=== PATIENT | female | born 1965 | race African-American/Black ===

== ENCOUNTER 2021-01-01 08:42 | Emergency (ER) | payer MEDICAID, MEDICARE, OTHER ==
[~2021-01-01] VITALS: Ht 160 cm; Wt 80.0 kg
[2021-01-01] MEDS ORDERED: VISCOUS LIDOCAINE 2% 15 ML UDC PO ONE (09:30)
[2021-01-01] MEDS ORDERED: ONDANSETRON 4MG ODT PO ONE (09:30)
[2021-01-01] MEDS ORDERED: MAGNESIUM/ALUMINUM HYDROXIDE/SIMETHICONE 30ML UDC PO ONE (09:30)
[2021-01-01 09:48] LABS: BASOPHILS % 0.4 % (0.0-2.0); EOSINOPHILS % 0.8 % (0.0-5.0); HEMATOCRIT. 38.1 % (36.0-48.0); LYMPHOCYTES % 31.1 % (20.0-50.0); MEAN CORPUSCULAR HEMOGLOBIN 32.4 pg (28.0-32.0); MEAN CORPUSCULAR VOLUME 94.7 fL (81.0-99.0); MEAN PLATELET VOLUME 8.5 fl (7.4-10.4); MONOCYTES % 11.4 % (2.0-8.0); NEUTROPHILS % 56.3 % (40.0-76.0); PLATELET 165 x1000/uL (130-400); RED BLOOD CELL COUNT 4.03 mill/uL (4.2-5.4); RED CELL DISTRIBUTION WIDTH 14.8 % (11.6-14.6)
[2021-01-01 09:55] LABS: CHLORIDE 108 mEq/L (98-107); CLARITY URINE CLEAR (CLEAR); COLOR URINE YELLOW (YELLOW); KETONES URINE NEGATIVE (NEGATIVE); LEUKOCYTE ESTERASE URINE 1+ (NEGATIVE); NITRITE URINE NEGATIVE (NEGATIVE); OCCULT BLOOD URINE NEGATIVE (NEGATIVE); PH URINE 6.5 (4.5-8.0); PROTEIN URINE NEGATIVE (NEGATIVE); SPECIFIC GRAVITY URINE 1.023 (1.005-1.030)
[2021-01-01] MEDS ORDERED: PANT20TA17 MT ×2 (14:03→14:21)
[2021-01-01] MEDS ORDERED: HYDROCODONE/ACETAMINOPHEN 5/325MG TABLET PO ONE (14:15)
[2021-01-01 14:24] VITALS: BP 151/80
[2021-01-01] MEDS ORDERED: IOHEXOL-300 100 ML BOTTLE ONE (14:36)
== END 2021-01-01 14:28 | disposition home or self-care (01) ==
LOC: ER 09:04
DX: R10.13 Epigastric pain (principal); F10.21 Alcohol dependence, in remission
CPT/HCPCS: 36415; 74177; 80053; 81003; 83690; 85025; 87086; 99285; Q0162; Q9967

== ENCOUNTER 2021-06-10 01:11 | Emergency (ER) | payer MEDICAID ==
[~2021-06-10] VITALS: Ht 160 cm; Wt 77.0 kg
[~2021-06-10 01:11] MED LIST: PANT20TA17 MT
[2021-06-10] MEDS ORDERED: ONDANSETRON 4MG ODT PO STA (02:29)
[2021-06-10] MEDS ORDERED: MAGNESIUM/ALUMINUM HYDROXIDE/SIMETHICONE 30ML UDC PO STA (02:29)
[2021-06-10] MEDS ORDERED: FAMOTIDINE 20MG TABLET PO ONE (02:30)
[2021-06-10 02:58] LABS: BASOPHILS % 0.6 % (0.0-2.0); EOSINOPHILS % 1.4 % (0.0-5.0); HEMATOCRIT. 39.4 % (36.0-48.0); HEMOGLOBIN. 13.3 g/dL (12.0-16.0); LYMPHOCYTES % 27.9 % (20.0-50.0); MEAN CORPUSCULAR HEMOGLOBIN 32.8 pg (28.0-32.0); MEAN CORPUSCULAR VOLUME 97.2 fL (81.0-99.0); MEAN PLATELET VOLUME 8.3 fl (7.4-10.4); MONOCYTES % 10.3 % (2.0-8.0); NEUTROPHILS % 59.8 % (40.0-76.0); PLATELET 201 x1000/uL (130-400); RED BLOOD CELL COUNT 4.05 mill/uL (4.2-5.4); RED CELL DISTRIBUTION WIDTH 14.2 % (11.6-14.6)
[2021-06-10 03:00] LABS: CHLORIDE 109 mEq/L (98-107)
[2021-06-10 03:16] LABS: CLARITY URINE CLOUDY (CLEAR); COLOR URINE YELLOW (YELLOW); KETONES URINE TRACE (NEGATIVE); LEUKOCYTE ESTERASE URINE NEGATIVE (NEGATIVE); NITRITE URINE NEGATIVE (NEGATIVE); OCCULT BLOOD URINE NEGATIVE (NEGATIVE); PH URINE 5.5 (4.5-8.0); PROTEIN URINE NEGATIVE (NEGATIVE); SPECIFIC GRAVITY URINE 1.028 (1.005-1.030)
[2021-06-10] MEDS ORDERED: IBUP-2028 MT (05:22)
[2021-06-10] MEDS ORDERED: HYDR-4001 MT (05:22)
[2021-06-10] MEDS ORDERED: PANT40SU PO (05:22)
[2021-06-10 06:00] VITALS: BP 141/95
[2021-06-10] MEDS ORDERED: HYDROCODONE/ACETAMINOPHEN 5/325MG TABLET PO ONE (06:00)
== END 2021-06-10 06:10 | disposition home or self-care (01) ==
LOC: ER 01:11
DX: K80.50 Calculus of bile duct without cholangitis or cholecystitis without obstruction (principal); K80.20 Calculus of gallbladder without cholecystitis without obstruction; Z76.0 Encounter for issue of repeat prescription; K21.9 Gastro-esophageal reflux disease without esophagitis; Z98.890 Other specified postprocedural states; Z79.899 Other long term (current) drug therapy
CPT/HCPCS: 36415; 71045; 76700; 80053; 81003; 83690; 85025; 93005; 99285; Q0162

== ENCOUNTER 2022-03-27 03:00 | Emergency (ER) | payer MEDICAID, MEDICARE ==
[~2022-03-27] VITALS: Ht 160 cm; Wt 76.0 kg
[~2022-03-27 03:00] MED LIST changes: +HYDR-4001 MT; +IBUP-2028 MT; +PANT40SU PO
[2022-03-27 03:08] VITALS: BP 147/99
[2022-03-27] MEDS ORDERED: TETRACAINE 0.5% OPHTH DROPS 4ML BOTHEYE ONE (04:30)
[2022-03-27] MEDS ORDERED: FLUORESCEIN SODIUM 1MG/STRIP BOTHEYE ONE (04:30)
[2022-03-27] MEDS ORDERED: IBUP-2028 MT (05:51)
[2022-03-27] MEDS ORDERED: KETO5DRO80 EACHEYE (05:51)
[2022-03-27] MEDS ORDERED: KETO5DRO37 EACHEYE (11:47)
== END 2022-03-27 06:04 | disposition home or self-care (01) ==
LOC: ER 03:00
DX: H10.023 Other mucopurulent conjunctivitis, bilateral (principal); K21.9 Gastro-esophageal reflux disease without esophagitis; Z98.890 Other specified postprocedural states
CPT/HCPCS: 99283

== ENCOUNTER 2022-05-03 02:59 | Emergency (ER) | payer MEDICAID ==
[~2022-05-03] VITALS: Ht 160 cm; Wt 76.5 kg
[~2022-05-03 02:59] MED LIST changes: +KETO5DRO37 EACHEYE; +KETO5DRO80 EACHEYE
[2022-05-03] MEDS ORDERED: IBUPROFEN 600MG TABLET PO STA (04:14)
[2022-05-03] MEDS ORDERED: TETRACAINE 0.5% OPHTH DROPS 4ML RIGHTEYE ONE (04:15)
[2022-05-03] MEDS ORDERED: FLUORESCEIN SODIUM 1MG/STRIP RIGHTEYE ONE (04:15)
[2022-05-03] MEDS ORDERED: BALANCED SALT IRRIG SOLN 15ML IR ONE (04:15)
[2022-05-03 04:36] VITALS: BP 151/91
[2022-05-03] MEDS ORDERED: ERYTHROMYCIN BASE 0.5% OPHTH OINT 3.5GM RIGHTEYE STA (05:39)
[2022-05-03] MEDS ORDERED: ERYT1OIN6 RIGHTEYE (06:02)
[2022-05-03] MEDS ORDERED: IBUP-2029 PO (06:02)
[2022-05-03] MEDS ORDERED: NAPR-681 PO (06:20)
[2022-05-03] MEDS ORDERED: TRAM50TA3 MT (06:20)
== END 2022-05-03 06:46 | disposition home or self-care (01) ==
LOC: ER 02:59
DX: S00.201A Unspecified superficial injury of right eyelid and periocular area, initial encounter (principal); X58.XXXA Exposure to other specified factors, initial encounter; Y93.89 Activity, other specified; Y92.89 Other specified places as the place of occurrence of the external cause; Y99.8 Other external cause status
CPT/HCPCS: 99283

== ENCOUNTER 2022-11-07 03:22 | Emergency (ER) | payer MEDICAID ==
[~2022-11-07] VITALS: Ht 160 cm; Wt 77.2 kg
[~2022-11-07 03:22] MED LIST changes: +ERYT1OIN6 RIGHTEYE; +NAPR-681 PO; +TRAM50TA3 MT
[2022-11-07 03:32] VITALS: BP 148/81
[2022-11-07] MEDS ORDERED: ACETAMINOPHEN 325MG TABLET PO ONE (05:30)
== END 2022-11-07 07:17 | disposition home or self-care (01) ==
LOC: ER 03:22
DX: R11.2 Nausea with vomiting, unspecified (principal); R51.9 Headache, unspecified
CPT/HCPCS: 71045; 99284

== ENCOUNTER 2023-03-16 03:38 | Emergency (ER) | payer MEDICAID ==
[~2023-03-16] VITALS: Ht 160 cm; Wt 74.2 kg
[~2023-03-16 03:38] MED LIST changes: -KETO5DRO37 EACHEYE; +KETO5DRO38 EACHEYE
[2023-03-16 03:47] VITALS: O2SAT 100
[2023-03-16] MEDS ORDERED: ACETAMINOPHEN 325MG TABLET PO ONE (06:45)
[2023-03-16] MEDS ORDERED: ONDANSETRON HCL 4MG/2ML INJ IV ONE (07:00)
[2023-03-16] MEDS ORDERED: ONDANSETRON HCL 4MG TABLET PO ONE (07:00)
[2023-03-16 07:05] LABS: BASOPHILS % 0.3 % (0.0-2.0); HEMATOCRIT. 38.1 % (36.0-48.0); LYMPHOCYTES % 8.1 % (20.0-50.0); MEAN CORPUSCULAR HEMOGLOBIN 32.4 pg (28.0-32.0); MEAN CORPUSCULAR VOLUME 95.2 fL (81.0-99.0); MEAN PLATELET VOLUME 8.8 fl (7.4-10.4); MONOCYTES % 10.8 % (2.0-8.0); NEUTROPHILS % 79.8 % (40.0-76.0); PLATELET 162 x1000/uL (130-400); RED CELL DISTRIBUTION WIDTH 13.9 % (11.6-14.6)
[2023-03-16 08:02] LABS: ALANINE AMINOTRANSFERASE 18 IU/L (13-61); ALBUMIN 3.5 g/dL (3.4-5.0); ASPARTATE AMINOTRANSFERASE 27 IU/L (15-37); BILIRUBIN TOTAL 0.6 mg/dL (0.1-1.0); CALCIUM 8.4 mg/dL (8.5-10.1); CARBON DIOXIDE 25 mEq/L (21-32); CREATININE 0.4 mg/dL (0.6-1.3); GLUCOSE 98 mg/dL (70-105); INDEX HEMOLYSI 1 (1-3); INDEX ICTERIC 1 (1-4); INDEX LIPEMIC 1 (1-3); NT PRO B-TYPE NATRIURETIC PEP 49 pg/mL (5-125); PROTEIN TOTAL 6.6 g/dL (6.0-8.3); TROPONIN I HIGH SENSITIVITY 4 ng/L (<54); UREA NITROGEN BLOOD 8 mg/dL (7-21)
[2023-03-16 09:14] LABS: CHLORIDE 107 mEq/L (98-107); SODIUM 134 mEq/L (136-145)
[2023-03-16] MEDS ORDERED: KETOROLAC 30MG/ML VIAL IV ONE (09:30)
[2023-03-16 09:32] LABS: CLARITY URINE CLOUDY (CLEAR); COLOR URINE YELLOW (YELLOW); GLUCOSE URINE NEGATIVE (NEGATIVE); KETONES URINE NEGATIVE (NEGATIVE); LEUKOCYTE ESTERASE URINE 1+ (NEGATIVE); NITRITE URINE NEGATIVE (NEGATIVE); OCCULT BLOOD URINE NEGATIVE (NEGATIVE); PH URINE 6.5 (4.5-8.0); PROTEIN URINE NEGATIVE (NEGATIVE)
[2023-03-16 09:54] LABS: BACTERIA URINE 2+; RBC URINE 0-2 /hpf (0-2); SQUAMOUS EPITHELIAL CELL URINE 1+ /lpf (RARE/1+); YEAST URINE NONE SEEN
[2023-03-16] MEDS ORDERED: ONDA4TAB50 MT (12:43)
[2023-03-16] MEDS ORDERED: NITR-87 MT (12:43)
[2023-03-16] MEDS ORDERED: NAPR-681 PO (12:43)
[2023-03-16] MEDS ORDERED: TRAM50TA3 MT (12:43)
[2023-03-16 13:07] VITALS: BP 127/81; PULSE 93; RESP 18; TEMP 97
== END 2023-03-16 13:17 | disposition home or self-care (01) ==
LOC: ER 05:12
DX: R52 Pain, unspecified (principal); I49.9 Cardiac arrhythmia, unspecified
CPT/HCPCS: 80053; 81003; 83880; 83605; 85025; 84484; 36415; 71045; 76705; 93005; 96374; 96375; 99285; J1885; J2405; Z7610 ×2

== ENCOUNTER 2023-03-30 12:17 | Inpatient (IN) | payer OTHER, MEDICAID ==
[~2023-03-30] VITALS: Ht 160 cm; Wt 72.1 kg
[~2023-03-30 12:17] MED LIST changes: +NITR-87 MT; +ONDA4TAB50 MT
[2023-03-30] MEDS ORDERED: ACETAMINOPHEN 325MG TABLET PO ONE (14:30)
[2023-03-30 14:49] LABS: BASOPHILS % 0.3 % (0.0-2.0); EOSINOPHILS % 1.9 % (0.0-5.0); HEMATOCRIT. 40.3 % (36.0-48.0); HEMOGLOBIN. 13.5 g/dL (12.0-16.0); LYMPHOCYTES % 21.3 % (20.0-50.0); MEAN CORPUSCULAR HEMOGLOBIN 31.9 pg (28.0-32.0); MEAN CORPUSCULAR HGB CONC 33.4 g/dL (31.0-37.0); MEAN CORPUSCULAR VOLUME 95.5 fL (81.0-99.0); MEAN PLATELET VOLUME 8.2 fl (7.4-10.4); MONOCYTES % 7.7 % (2.0-8.0); NEUTROPHILS % 68.8 % (40.0-76.0); PLATELET 261 x1000/uL (130-400); RED BLOOD CELL COUNT 4.22 mill/uL (4.2-5.4); RED CELL DISTRIBUTION WIDTH 14.4 % (11.6-14.6); WHITE BLOOD COUNT 5.3 x1000/uL (4.5-11.0)
[2023-03-30 15:26] LABS: CHLORIDE 111 mEq/L (98-107); INDEX HEMOLYSI 1 (1-3); INDEX ICTERIC 1 (1-4); INDEX LIPEMIC 1 (1-3); POTASSIUM 4.5 mEq/L (3.5-5.1); SODIUM 140 mEq/L (136-145)
[2023-03-30 15:28] LABS: PARTIAL THROMBOPLASTIN TIME 26.2 sec (23.4-31.0); PROTHROMBIN TIME 10.3 sec (9.6-11.0)
[2023-03-30] MEDS ORDERED: MORPHINE SULFATE 4 MG/ML CPJ (NOT FOR IM USE) IV ONE (15:30)
[2023-03-30] MEDS ORDERED: ONDANSETRON HCL 4MG/2ML INJ IV ONE (15:30)
[2023-03-30 15:36] LABS: ALANINE AMINOTRANSFERASE 54 IU/L (13-61); ALBUMIN 3.5 g/dL (3.4-5.0); ASPARTATE AMINOTRANSFERASE 59 IU/L (15-37); BILIRUBIN TOTAL 0.2 mg/dL (0.1-1.0); CALCIUM 8.6 mg/dL (8.5-10.1); CARBON DIOXIDE 26 mEq/L (21-32); CREATININE 0.6 mg/dL (0.6-1.3); GLUCOSE 92 mg/dL (70-105); NT PRO B-TYPE NATRIURETIC PEP 59 pg/mL (5-125); PROTEIN TOTAL 6.7 g/dL (6.0-8.3); TROPONIN I HIGH SENSITIVITY 5 ng/L (<54); UREA NITROGEN BLOOD 13 mg/dL (7-21)
[2023-03-30] MEDS ORDERED: HYDROMORPHONE HCL/PF 2MG/ML CPJ IV ONE (17:45)
[2023-03-30 17:46] LABS: PROTHROMBIN TIME 10.6 sec (9.6-11.0)
[2023-03-30] MEDS ORDERED: CLONIDINE 0.1MG TABLET PO PRN (19:30)
[2023-03-30] MEDS ORDERED: IPRATROPIUM/ALBUTEROL 0.5-3(2.5)MG/3ML NEB HHN PRN (19:30)
[2023-03-30] MEDS ORDERED: LORAZEPAM 0.5MG TABLET PO PRN (19:30)
[2023-03-30] MEDS ORDERED: MAGNESIUM/ALUMINUM HYDROXIDE/SIMETHICONE 30ML UDC PO PRN (19:30)
[2023-03-30] MEDS ORDERED: ACETAMINOPHEN 325MG TABLET PO PRN ×2 (19:30)
[2023-03-30] MEDS ORDERED: MORPHINE SULFATE 2 MG/ML CPJ (NOT FOR IM USE) IV PRN (21:15)
[2023-03-30] MEDS ORDERED: DEXTROSE 50% WATER 50ML SYRINGE IV PRN (21:30)
[2023-03-30] MEDS ORDERED: NALOXONE HCL 0.4 MG/ML 1ML VIAL IV PRN (21:30)
[2023-03-30 21:35] VITALS: BP 117/79; PULSE 72; RESP 18; TEMP 98.1
[2023-03-30] MEDS ORDERED: GADOTERATE MEGLUMINE 5 MMOL/10 ML VIAL IV ONE (22:19)
[2023-03-30] MEDS: BLOOD SUGAR DIAGNOSTIC STRIP TEST SCH (23:10)
[2023-03-30] MEDS: INSULIN LISPRO 100 UNITS/ML SUBCUT SCH (23:10)
[2023-03-30 23:22] LABS: INDEX HEMOLYSI 1 (1-3)
[2023-03-30 23:24] LABS: PHOSPHORUS 3.9 mg/dL (2.5-4.9)
[2023-03-30 23:38] LABS: CREATINE KINASE 35 IU/L (26-192); CREATINE KINASE MB FRACTION < 1.0 ng/mL (0.5-3.6); TROPONIN I HIGH SENSITIVITY 6 ng/L (<54)
[2023-03-31] VITALS (18 sets, daily range): BP systolic 89–147; BP diastolic 58–93; PULSE 48–77; RESP 14–18; TEMP 96.9–98; O2SAT 99
[2023-03-31 04:34] LABS: BASOPHILS % 0.4 % (0.0-2.0); HEMATOCRIT. 36.8 % (36.0-48.0); HEMOGLOBIN. 12.3 g/dL (12.0-16.0); MEAN CORPUSCULAR HEMOGLOBIN 31.6 pg (28.0-32.0); MEAN CORPUSCULAR HGB CONC 33.3 g/dL (31.0-37.0); MEAN CORPUSCULAR VOLUME 94.8 fL (81.0-99.0); MEAN PLATELET VOLUME 8.1 fl (7.4-10.4); NEUTROPHILS % 53.6 % (40.0-76.0); PLATELET 212 x1000/uL (130-400); RED BLOOD CELL COUNT 3.88 mill/uL (4.2-5.4); WHITE BLOOD COUNT 4.4 x1000/uL (4.5-11.0)
[2023-03-31 05:15] LABS: CHLORIDE 109 mEq/L (98-107); INDEX HEMOLYSI 1 (1-3); INDEX ICTERIC 1 (1-4); INDEX LIPEMIC 1 (1-3); POTASSIUM 4.9 mEq/L (3.5-5.1); SODIUM 137 mEq/L (136-145)
[2023-03-31 05:29] LABS: ALANINE AMINOTRANSFERASE 47 IU/L (13-61); ASPARTATE AMINOTRANSFERASE 44 IU/L (15-37); BILIRUBIN TOTAL 0.3 mg/dL (0.1-1.0); CALCIUM 8.8 mg/dL (8.5-10.1); CARBON DIOXIDE 29 mEq/L (21-32); CHOLESTEROL 171 mg/dL (<200); CREATINE KINASE 32 IU/L (26-192); CREATINE KINASE MB FRACTION < 1.0 ng/mL (0.5-3.6); CREATININE 0.5 mg/dL (0.6-1.3); GLUCOSE 91 mg/dL (70-105); HDL CHOLESTEROL 46 mg/dL (40-59); LDL CHOLESTEROL 112 mg/dL (5-100); PROTEIN TOTAL 5.8 g/dL (6.0-8.3); T4 FREE 1.06 ng/dL (0.76-1.46); TRIGLYCERIDE 93 mg/dL (0-150); TROPONIN I HIGH SENSITIVITY 5 ng/L (<54); UREA NITROGEN BLOOD 12 mg/dL (7-21)
[2023-03-31] MEDS ORDERED: GENTAMICIN SULF 40MG/ML 2ML VIAL ONE (06:31)
[2023-03-31] MEDS ORDERED: LIDOCAINE HCL 1%/EPI 1:200,000 30 ML VIAL ONE (06:31)
[2023-03-31] MEDS ORDERED: THROMBIN (BOVINE) 5000 UNITS/VIAL TOP ONE ×2 (06:31→09:20)
[2023-03-31] MEDS ORDERED: ONDANSETRON HCL 4MG/2ML INJ ONE (07:03)
[2023-03-31] MEDS ORDERED: GLYCOPYRROLATE 0.2 MG/ML 2ML VIAL ONE ×2 (07:03)
[2023-03-31] MEDS ORDERED: DEXAMETHASONE 4MG/ML 1ML VIAL ONE (07:03)
[2023-03-31] MEDS ORDERED: NEOSTIGMINE METHYLSULFATE 1MG/ML 10 ML VIAL ONE (07:03)
[2023-03-31] MEDS ORDERED: SUCCINYLCHOLINE CHLORIDE 200MG/10ML IV ONE (07:03)
[2023-03-31] MEDS ORDERED: LIDOCAINE HCL 1% 10 MG/ML 10ML VIAL ONE (07:03)
[2023-03-31] MEDS ORDERED: CEFAZOLIN SODIUM 1000MG/VIAL ONE (07:03)
[2023-03-31] MEDS ORDERED: MIDAZOLAM HCL 2 MG/2 ML VIAL ONE (07:04)
[2023-03-31] MEDS ORDERED: FENTANYL CITRATE/PF 50MCG/ML 2ML VIAL ONE (07:04)
[2023-03-31] MEDS ORDERED: PROPOFOL 200MG/20ML VIAL IV ONE (07:04)
[2023-03-31] MEDS: INSULIN LISPRO 100 UNITS/ML SUBCUT SCH ×4 (07:08→21:00)
[2023-03-31] MEDS: BLOOD SUGAR DIAGNOSTIC STRIP TEST SCH ×4 (07:08→21:00)
[2023-03-31] MEDS ORDERED: ROCURONIUM BROMIDE 10MG/ML VIAL 5ML IV ONE (07:39)
[2023-03-31] MEDS ORDERED: MANNITOL 20% 500 ML IV ONE (07:52)
[2023-03-31] MEDS ORDERED: MEPERIDINE HCL/PF 25MG/ML CPJ IV PRN (08:00)
[2023-03-31] MEDS ORDERED: ONDANSETRON HCL 4MG/2ML INJ IV PRN (08:00)
[2023-03-31] MEDS ORDERED: HYDROMORPHONE HCL/PF 2MG/ML CPJ IV PRN (08:00)
[2023-03-31] MEDS ORDERED: LABETALOL 5MG/ML SYR 20 MG/4 ML SYRINGE IV PRN (08:00)
[2023-03-31] MEDS ORDERED: LEVETIRACETAM 500MG PREMIX 100 ML IV SCH (08:15)
[2023-03-31] MEDS ORDERED: LABETALOL HCL 5MG/ML VIAL 20ML IV ONE (09:46)
[2023-03-31] MEDS ORDERED: MORPHINE SULFATE 4 MG/ML CPJ (NOT FOR IM USE) IV PRN (10:00)
[2023-03-31] MEDS ORDERED: HYDROMORPHONE HCL/PF 2MG/ML CPJ ONE (10:04)
[2023-03-31] MEDS: DEXAMETHASONE 4MG/ML 1ML VIAL IV SCH ×3 (11:35→23:55)
[2023-03-31] MEDS: DEXT 5%/LACTATED RINGERS 1,000 ML IV SCH (11:35)
[2023-03-31] MEDS ORDERED: NICARDIPINE 100 MG in SODIUM CHLORIDE 0.9% 60 ML IV PRN (12:00)
[2023-03-31 13:18] LABS: BG BASE EXCESS -1.8 mmol/L (-2.0-2.0); BG CARBOXYHEMOGLOBIN 0.3 % (0.5-1.5); BG DEOXYHEMOGLOBIN 1.2 % (0.0-5.0); BG FRACTION INSPIRED OXYGEN 36; BG OXYGEN SATURATION 98.8 % (92.0-98.5); BG OXYHEMOGLOBIN 98.5 % (94.0-97.0); BG PCO2 44.5 mmHg (35.0-45.0); BG PH 7.349 (7.350-7.450); BG PO2 164.4 mmHg (75.0-100.0); BG SAMPLE SITE ALINE; BG TOTAL HEMOGLOBIN 12.7 g/dL (12.0-18.0); BG VENT MODE NASAL CANNULA
[2023-03-31] MEDS ORDERED: CEFAZOLIN SODIUM 1000MG/VIAL IV SCH (14:00)
[2023-03-31] MEDS: CEFAZOLIN 1000MG PREMIX 50 ML IV SCH ×2 (14:28→21:24)
[2023-03-31] MEDS: HYDROMORPHONE HCL/PF 2MG/ML CPJ IV PRN ×2 (14:29→19:50)
[2023-03-31] MEDS ORDERED: THROAT LOZENGES-BENZOCAINE/MENTH/CETYLPYRD CL LOZENGES MM PRN (17:30)
[2023-03-31] MEDS: IPRATROPIUM/ALBUTEROL 0.5-3(2.5)MG/3ML NEB HHN SCH (20:25)
[2023-03-31] MEDS: LEVETIRACETAM 500MG PREMIX 100 ML IV SCH (21:25)
[2023-03-31] MEDS ORDERED: ONDANSETRON HCL 4MG/2ML INJ IV NR (22:47)
[2023-03-31] MEDS ORDERED: FLUMAZENIL 0.1 MG/ML 5ML VIAL IV NR (23:00)
[2023-03-31] MEDS ORDERED: ATROPINE SULFATE 1MG/ML VIAL IV PRN (23:00)
[2023-03-31] MEDS ORDERED: HYDRALAZINE 20MG/ML VIAL IV NR (23:04)
[2023-04-01] VITALS (26 sets, daily range): BP systolic 83–137; BP diastolic 41–81; PULSE 54–127; RESP 9–45; TEMP 97.9–99.5; O2SAT 98–99
[2023-04-01] MEDS: IPRATROPIUM/ALBUTEROL 0.5-3(2.5)MG/3ML NEB HHN SCH ×4 (01:34→20:47)
[2023-04-01] MEDS: DEXT 5%/LACTATED RINGERS 1,000 ML IV SCH ×2 (04:28→21:19)
[2023-04-01] MEDS: CEFAZOLIN 1000MG PREMIX 50 ML IV SCH ×3 (05:29→22:38)
[2023-04-01] MEDS: DEXAMETHASONE 4MG/ML 1ML VIAL IV SCH ×2 (05:31→12:44)
[2023-04-01] MEDS: BLOOD SUGAR DIAGNOSTIC STRIP TEST SCH ×4 (06:30→21:42)
[2023-04-01] MEDS: INSULIN LISPRO 100 UNITS/ML SUBCUT SCH ×4 (07:00→21:00)
[2023-04-01] MEDS: PANTOPRAZOLE SODIUM 40 MG/VIAL IV SCH (08:34)
[2023-04-01] MEDS: LEVETIRACETAM 500MG PREMIX 100 ML IV SCH ×2 (08:34→21:01)
[2023-04-01 09:21] LABS: BASOPHILS % 0.1 % (0.0-2.0); HEMATOCRIT. 31.6 % (36.0-48.0); HEMOGLOBIN. 10.5 g/dL (12.0-16.0); LYMPHOCYTES % 7.6 % (20.0-50.0); MEAN CORPUSCULAR HEMOGLOBIN 31.7 pg (28.0-32.0); MEAN CORPUSCULAR HGB CONC 33.3 g/dL (31.0-37.0); MEAN CORPUSCULAR VOLUME 95.1 fL (81.0-99.0); MEAN PLATELET VOLUME 8.3 fl (7.4-10.4); MONOCYTES % 3.8 % (2.0-8.0); NEUTROPHILS % 88.5 % (40.0-76.0); PLATELET 197 x1000/uL (130-400); RED BLOOD CELL COUNT 3.32 mill/uL (4.2-5.4); RED CELL DISTRIBUTION WIDTH 13.5 % (11.6-14.6); WHITE BLOOD COUNT 7.8 x1000/uL (4.5-11.0)
[2023-04-01 09:32] LABS: CHLORIDE 107 mEq/L (98-107); INDEX HEMOLYSI 1 (1-3); INDEX ICTERIC 1 (1-4); INDEX LIPEMIC 1 (1-3); POTASSIUM 4.2 mEq/L (3.5-5.1); SODIUM 137 mEq/L (136-145)
[2023-04-01 09:40] LABS: ALANINE AMINOTRANSFERASE 33 IU/L (13-61); ALBUMIN 2.9 g/dL (3.4-5.0); ASPARTATE AMINOTRANSFERASE 29 IU/L (15-37); BILIRUBIN TOTAL 0.2 mg/dL (0.1-1.0); CALCIUM 8.5 mg/dL (8.5-10.1); CARBON DIOXIDE 27 mEq/L (21-32); CREATININE 0.5 mg/dL (0.6-1.3); GLUCOSE 159 mg/dL (70-105); PROTEIN TOTAL 5.6 g/dL (6.0-8.3); UREA NITROGEN BLOOD 6 mg/dL (7-21)
[2023-04-01] MEDS: HYDROMORPHONE HCL/PF 2MG/ML CPJ IV PRN ×4 (12:44→22:38)
[2023-04-01] MEDS ORDERED: HYDROMORPHONE HCL/PF 2MG/ML CPJ IV NR (14:00)
[2023-04-01] MEDS: ONDANSETRON HCL 4MG/2ML INJ IV PRN (14:10)
[2023-04-01] MEDS: HYDROCODONE/ACETAMINOPHEN 5/325MG TABLET PO PRN (14:11)
[2023-04-01 17:14] LABS: CREATINE KINASE 25 IU/L (26-192); CREATINE KINASE MB FRACTION < 1.0 ng/mL (0.5-3.6); INDEX HEMOLYSI 1 (1-3); TROPONIN I HIGH SENSITIVITY 4 ng/L (<54)
[2023-04-01 23:22] LABS: INDEX HEMOLYSI 1 (1-3)
[2023-04-01 23:28] LABS: CREATINE KINASE 23 IU/L (26-192); CREATINE KINASE MB FRACTION < 1.0 ng/mL (0.5-3.6); TROPONIN I HIGH SENSITIVITY 6 ng/L (<54)
[2023-04-02] VITALS (20 sets, daily range): BP systolic 91–123; BP diastolic 50–80; PULSE 73–102; RESP 8–53; TEMP 97.5–99.5; O2SAT 96–99
[2023-04-02] MEDS: IPRATROPIUM/ALBUTEROL 0.5-3(2.5)MG/3ML NEB HHN SCH ×4 (00:50→21:56)
[2023-04-02] MEDS: HYDROMORPHONE HCL/PF 2MG/ML CPJ IV PRN ×6 (02:31→21:23)
[2023-04-02 05:00] LABS: BASOPHILS % 0.2 % (0.0-2.0); EOSINOPHILS % 0.1 % (0.0-5.0); HEMATOCRIT. 30.2 % (36.0-48.0); LYMPHOCYTES % 18.4 % (20.0-50.0); MEAN CORPUSCULAR HEMOGLOBIN 31.4 pg (28.0-32.0); MEAN PLATELET VOLUME 8.5 fl (7.4-10.4); MONOCYTES % 7.1 % (2.0-8.0); NEUTROPHILS % 74.2 % (40.0-76.0); PLATELET 204 x1000/uL (130-400); RED BLOOD CELL COUNT 3.18 mill/uL (4.2-5.4); RED CELL DISTRIBUTION WIDTH 13.6 % (11.6-14.6); WHITE BLOOD COUNT 8.7 x1000/uL (4.5-11.0)
[2023-04-02 05:02] LABS: CHLORIDE 109 mEq/L (98-107); INDEX HEMOLYSI 1 (1-3); INDEX ICTERIC 1 (1-4); INDEX LIPEMIC 1 (1-3); POTASSIUM 3.6 mEq/L (3.5-5.1); SODIUM 141 mEq/L (136-145)
[2023-04-02 05:13] LABS: ALANINE AMINOTRANSFERASE 27 IU/L (13-61); ASPARTATE AMINOTRANSFERASE 26 IU/L (15-37); BILIRUBIN TOTAL 0.2 mg/dL (0.1-1.0); CALCIUM 8.6 mg/dL (8.5-10.1); CARBON DIOXIDE 27 mEq/L (21-32); CREATINE KINASE 24 IU/L (26-192); CREATINE KINASE MB FRACTION < 1.0 ng/mL (0.5-3.6); CREATININE 0.6 mg/dL (0.6-1.3); GLUCOSE 102 mg/dL (70-105); PROTEIN TOTAL 5.7 g/dL (6.0-8.3); TROPONIN I HIGH SENSITIVITY 4 ng/L (<54); UREA NITROGEN BLOOD 8 mg/dL (7-21)
[2023-04-02] MEDS: CEFAZOLIN 1000MG PREMIX 50 ML IV SCH (05:25)
[2023-04-02] MEDS: BLOOD SUGAR DIAGNOSTIC STRIP TEST SCH ×4 (05:30→21:00)
[2023-04-02] MEDS: INSULIN LISPRO 100 UNITS/ML SUBCUT SCH ×4 (05:31→21:00)
[2023-04-02] MEDS: PANTOPRAZOLE SODIUM 40 MG/VIAL IV SCH (08:40)
[2023-04-02] MEDS: LEVETIRACETAM 500MG PREMIX 100 ML IV SCH ×2 (08:40→21:20)
[2023-04-02] MEDS ORDERED: GADOTERATE MEGLUMINE 5 MMOL/10 ML VIAL IV ONE (10:56)
[2023-04-02] MEDS: DEXT 5%/LACTATED RINGERS 1,000 ML IV SCH (14:00)
[2023-04-03] VITALS (15 sets, daily range): BP systolic 67–135; BP diastolic 43–91; PULSE 68–99; RESP 12–27; TEMP 97.6–99.1; O2SAT 98–100
[2023-04-03] MEDS: IPRATROPIUM/ALBUTEROL 0.5-3(2.5)MG/3ML NEB HHN SCH ×3 (01:14→20:51)
[2023-04-03] MEDS: HYDROMORPHONE HCL/PF 2MG/ML CPJ IV PRN ×5 (04:16→23:33)
[2023-04-03] MEDS: BLOOD SUGAR DIAGNOSTIC STRIP TEST SCH ×4 (06:26→22:19)
[2023-04-03] MEDS: INSULIN LISPRO 100 UNITS/ML SUBCUT SCH ×4 (06:26→21:00)
[2023-04-03] MEDS: DEXT 5%/LACTATED RINGERS 1,000 ML IV SCH ×2 (06:27→22:49)
[2023-04-03 07:31] LABS: BASOPHILS % 0.3 % (0.0-2.0); EOSINOPHILS % 0.9 % (0.0-5.0); HEMATOCRIT. 27.4 % (36.0-48.0); HEMOGLOBIN. 9.3 g/dL (12.0-16.0); LYMPHOCYTES % 19.3 % (20.0-50.0); MEAN CORPUSCULAR HEMOGLOBIN 32.2 pg (28.0-32.0); MEAN CORPUSCULAR HGB CONC 33.9 g/dL (31.0-37.0); MEAN CORPUSCULAR VOLUME 95.2 fL (81.0-99.0); MEAN PLATELET VOLUME 8.7 fl (7.4-10.4); MONOCYTES % 8.5 % (2.0-8.0); PLATELET 195 x1000/uL (130-400); RED BLOOD CELL COUNT 2.88 mill/uL (4.2-5.4); RED CELL DISTRIBUTION WIDTH 13.8 % (11.6-14.6); WHITE BLOOD COUNT 5.7 x1000/uL (4.5-11.0)
[2023-04-03] MEDS: PANTOPRAZOLE SODIUM 40 MG/VIAL IV SCH (08:34)
[2023-04-03] MEDS: LEVETIRACETAM 500MG PREMIX 100 ML IV SCH ×2 (09:46→20:33)
[2023-04-03 09:50] LABS: CHLORIDE 107 mEq/L (98-107); INDEX HEMOLYSI 1 (1-3); INDEX ICTERIC 1 (1-4); INDEX LIPEMIC 1 (1-3); SODIUM 138 mEq/L (136-145)
[2023-04-03 09:57] LABS: ALANINE AMINOTRANSFERASE 24 IU/L (13-61); ALBUMIN 2.7 g/dL (3.4-5.0); ASPARTATE AMINOTRANSFERASE 23 IU/L (15-37); BILIRUBIN TOTAL 0.7 mg/dL (0.1-1.0); CALCIUM 8.1 mg/dL (8.5-10.1); CARBON DIOXIDE 28 mEq/L (21-32); CREATININE 0.5 mg/dL (0.6-1.3); GLUCOSE 96 mg/dL (70-105); PROTEIN TOTAL 5.3 g/dL (6.0-8.3); UREA NITROGEN BLOOD 5 mg/dL (7-21)
[2023-04-03] MEDS: HYDROCODONE/ACETAMINOPHEN 5/325MG TABLET PO PRN (12:00)
[2023-04-03] MEDS ORDERED: GADOTERATE MEGLUMINE 5 MMOL/10 ML VIAL IV ONE (18:59)
[2023-04-03] MEDS: ONDANSETRON HCL 4MG/2ML INJ IV PRN (23:40)
[2023-04-04] VITALS (9 sets, daily range): BP systolic 106–149; BP diastolic 68–94; PULSE 71–104; RESP 12–20; TEMP 98–99; O2SAT 95–99
[2023-04-04] MEDS: IPRATROPIUM/ALBUTEROL 0.5-3(2.5)MG/3ML NEB HHN SCH ×4 (02:25→20:44)
[2023-04-04] MEDS: HYDROMORPHONE HCL/PF 2MG/ML CPJ IV PRN ×5 (02:46→22:58)
[2023-04-04 06:03] LABS: BASOPHILS % 0.5 % (0.0-2.0); EOSINOPHILS % 1.9 % (0.0-5.0); HEMATOCRIT. 28.3 % (36.0-48.0); HEMOGLOBIN. 9.4 g/dL (12.0-16.0); LYMPHOCYTES % 22.8 % (20.0-50.0); MEAN CORPUSCULAR HEMOGLOBIN 31.8 pg (28.0-32.0); MEAN CORPUSCULAR HGB CONC 33.4 g/dL (31.0-37.0); MEAN CORPUSCULAR VOLUME 95.2 fL (81.0-99.0); MEAN PLATELET VOLUME 8.2 fl (7.4-10.4); NEUTROPHILS % 65.8 % (40.0-76.0); PLATELET 185 x1000/uL (130-400); RED BLOOD CELL COUNT 2.97 mill/uL (4.2-5.4); RED CELL DISTRIBUTION WIDTH 13.5 % (11.6-14.6); WHITE BLOOD COUNT 5.2 x1000/uL (4.5-11.0)
[2023-04-04 06:08] LABS: CANCER ANTIGEN 125 5.3 U/mL (0.0-38.1)
[2023-04-04] MEDS: BLOOD SUGAR DIAGNOSTIC STRIP TEST SCH ×4 (06:10→21:00)
[2023-04-04] MEDS: INSULIN LISPRO 100 UNITS/ML SUBCUT SCH ×4 (07:20→21:00)
[2023-04-04] MEDS: HYDROCODONE/ACETAMINOPHEN 5/325MG TABLET PO PRN ×2 (08:16→21:41)
[2023-04-04] MEDS: FAMOTIDINE 20MG/2ML VIAL IV SCH ×2 (08:23→20:46)
[2023-04-04] MEDS: LEVETIRACETAM 500MG PREMIX 100 ML IV SCH ×2 (08:24→20:45)
[2023-04-04] MEDS ORDERED: HYDROMORPHONE HCL/PF 2MG/ML CPJ IV NR (08:45)
[2023-04-04 09:12] LABS: CHLORIDE 106 mEq/L (98-107); INDEX HEMOLYSI 1 (1-3); INDEX ICTERIC 1 (1-4); INDEX LIPEMIC 1 (1-3); SODIUM 139 mEq/L (136-145)
[2023-04-04 09:22] LABS: ALANINE AMINOTRANSFERASE 29 IU/L (13-61); ALBUMIN 2.7 g/dL (3.4-5.0); ASPARTATE AMINOTRANSFERASE 21 IU/L (15-37); BILIRUBIN TOTAL 0.4 mg/dL (0.1-1.0); CALCIUM 8.6 mg/dL (8.5-10.1); CARBON DIOXIDE 26 mEq/L (21-32); CREATININE 0.5 mg/dL (0.6-1.3); GLUCOSE 97 mg/dL (70-105); PROTEIN TOTAL 5.5 g/dL (6.0-8.3); UREA NITROGEN BLOOD 6 mg/dL (7-21)
[2023-04-04] MEDS: DEXT 5%/LACTATED RINGERS 1,000 ML IV SCH (17:03)
[2023-04-04] MEDS: ONDANSETRON HCL 4MG/2ML INJ IV PRN (19:49)
[2023-04-04] MEDS: DOCUSATE SODIUM 100MG CAPSULE PO PRN (22:13)
[2023-04-05] VITALS (8 sets, daily range): BP systolic 103–138; BP diastolic 62–74; PULSE 60–85; RESP 15–20; TEMP 97–97.9; O2SAT 98–100
[2023-04-05] MEDS: HYDROMORPHONE HCL/PF 2MG/ML CPJ IV PRN ×6 (02:03→22:12)
[2023-04-05] MEDS: HYDROCODONE/ACETAMINOPHEN 5/325MG TABLET PO PRN ×3 (04:24→23:27)
[2023-04-05] MEDS: BLOOD SUGAR DIAGNOSTIC STRIP TEST SCH ×4 (05:40→20:51)
[2023-04-05] MEDS: INSULIN LISPRO 100 UNITS/ML SUBCUT SCH ×4 (07:20→20:51)
[2023-04-05] MEDS: LEVETIRACETAM 500MG PREMIX 100 ML IV SCH ×2 (08:10→23:27)
[2023-04-05] MEDS: FAMOTIDINE 20MG/2ML VIAL IV SCH ×2 (08:10→23:27)
[2023-04-05] MEDS: IPRATROPIUM/ALBUTEROL 0.5-3(2.5)MG/3ML NEB HHN SCH ×4 (09:06→18:00)
[2023-04-05] MEDS: DEXT 5%/LACTATED RINGERS 1,000 ML IV SCH (13:36)
[2023-04-06] VITALS: BP 115/75; PULSE 67; RESP 15; TEMP 98
[2023-04-06] MEDS: HYDROMORPHONE HCL/PF 2MG/ML CPJ IV PRN ×2 (01:29→07:05)
[2023-04-06] MEDS: DEXT 5%/LACTATED RINGERS 1,000 ML IV SCH (03:51)
[2023-04-06 04:00] VITALS: BP 119/79; PULSE 67; RESP 17; TEMP 97.8
[2023-04-06] MEDS: DOCUSATE SODIUM 100MG CAPSULE PO PRN (04:01)
[2023-04-06] MEDS: BLOOD SUGAR DIAGNOSTIC STRIP TEST SCH (06:50)
[2023-04-06 07:05] VITALS: RESP 14
[2023-04-06] MEDS: FAMOTIDINE 20MG/2ML VIAL IV SCH (08:42)
[2023-04-06] MEDS: LEVETIRACETAM 500MG PREMIX 100 ML IV SCH (08:42)
[2023-04-06 08:52] VITALS: BP 103/46; PULSE 98; TEMP 96; O2SAT 96
[2023-04-06] MEDS ORDERED: FAMOTIDINE 20MG TABLET PO SCH (17:00)
== END 2023-04-06 10:10 | disposition home or self-care (01) | DRG 26 ==
LOC: ER 12:17 → EDBEDREQ 17:40 → ENRESERV 19:43 → 8WST 21:10 → MICUSO 03-31 09:31 → 3WST 04-02 19:04
PROVIDERS: ADMIT Internal Medicine; ATTEND Internal Medicine
PROC: 00B20ZZ Excision of Dura Mater, Open Approach (ICD-10-PCS; principal; 2023-04-01)
PROC: 00U207Z Supplement Dura Mater with Autologous Tissue Substitute, Open Approach (ICD-10-PCS; 2023-04-01)
PROC: 0NU10JZ Supplement Frontal Bone with Synthetic Substitute, Open Approach (ICD-10-PCS; 2023-04-01)
DX: D33.0 Benign neoplasm of brain, supratentorial (principal); E44.1 Mild protein-calorie malnutrition; G93.40 Encephalopathy, unspecified; M54.12 Radiculopathy, cervical region; K80.20 Calculus of gallbladder without cholecystitis without obstruction; K76.9 Liver disease, unspecified; Z68.28 Body mass index [BMI] 28.0-28.9, adult; F41.9 Anxiety disorder, unspecified; Z20.822 Contact with and (suspected) exposure to COVID-19; E78.5 Hyperlipidemia, unspecified; E88.09 Other disorders of plasma-protein metabolism, not elsewhere classified; F17.210 Nicotine dependence, cigarettes, uncomplicated; K59.00 Constipation, unspecified; Z98.1 Arthrodesis status
CPT/HCPCS: 36415; 36600; 70553; 71045; 71250; 72156; 72157; 72158; 74176; 80053; 80061; 82375; 82378; 82550; 82553; 82805; 82962; 83036; 83605; 83735; 83880; 84100; 84145; 84439; 84443; 84484; 85025; 85379; 86301; 86304; 86850; 86900; 86920; 87426; 88307; 93005; 93306; 93970; 94640; 97116; 97163; 97166; 97535; 99285; A9577; C9113; C9803; J0330; J0360; J0690; J1100; J1170; J1580; J1953; J2250; J2270; J2405; J2704; J2710; J3010; J3490; J7050; J7121; A4315

== ENCOUNTER 2023-09-25 20:42 | Emergency (ER) | payer MEDICAID ==
[~2023-09-25] VITALS: Ht 167.6 cm; Wt 65.0 kg
[~2023-09-25 20:42] MED LIST changes: +BACL-141 PO; -ERYT1OIN6 RIGHTEYE; +FURO20TA4 PO; +GABA-532 PO; -HYDR-4001 MT; -IBUP-2028 MT; -KETO5DRO38 EACHEYE; -KETO5DRO80 EACHEYE; +MORP30CP13 PO; -NAPR-681 PO; +NICO-681 TP; -NITR-87 MT; +OLAP150T PO; -PANT20TA17 MT; -PANT40SU PO; +POLY17PO3 PO; +RIVA20TA PO; -TRAM50TA3 MT; +XAR15 PO; +[UNRECOGNIZED DRUG - OTHER]
[2023-09-25 20:50] VITALS: O2SAT 98
[2023-09-26] MEDS: ZIPRASIDONE MESYLATE 20MG/VIAL IM ONE (12:45)
[2023-09-26 19:55] VITALS: BP 140/87; PULSE 89; RESP 13; TEMP 97.8
[2023-09-30] MEDS ORDERED: HYDR4TAB56 PO (15:33)
[2023-09-30] MEDS ORDERED: MORP30CP13 PO (15:33)
== END 2023-09-26 20:15 | disposition home or self-care (01) ==
LOC: ER 20:45 → EDBEDREQ 09-26 12:27 → EDBEDREQSVC 09-26 15:09 → EDBEDREQ 09-26 16:12 → CANBEDREQ 09-26 19:00 → ER 09-26 20:15
DX: R44.3 Hallucinations, unspecified (principal); I49.9 Cardiac arrhythmia, unspecified; Z00.00 Encounter for general adult medical examination without abnormal findings; Z98.890 Other specified postprocedural states
CPT/HCPCS: 99285; 93005; J3486; Z7610